=== PATIENT | male | born 1960 | race Caucasian/White ===

== ENCOUNTER 2020-09-06 07:56 | Outpatient (CLI) | payer OTHER | END 2020-09-06 07:57 | disposition home or self-care (01) | LOC: BICULT 07:56 | PROVIDERS: ATTEND Family Medicine | DX: R10.11 Right upper quadrant pain (principal); K76.0 Fatty (change of) liver, not elsewhere classified | CPT/HCPCS: 76705 ==

== ENCOUNTER 2020-09-22 14:09 | Outpatient (CLI) | payer OTHER | END 2020-09-22 14:10 | disposition home or self-care (01) | LOC: SCSMRI 14:09 | PROVIDERS: ATTEND Family Medicine | DX: M47.22 Other spondylosis with radiculopathy, cervical region (principal) | CPT/HCPCS: 72141 ==

== ENCOUNTER 2022-12-14 11:09 | Emergency (ER) | payer OTHER ==
[2022-12-14 11:38] LABS: #Basophils 0.1 thou/uL (0.0-0.2); #Eosinphils 0.1 thou/uL (0.0-0.7); #Monocytes 0.9 thou/uL (0.11-0.59); #Neutrophils 5.5 thou/uL (1.40-6.50); %Basophils 1.1 % (0.0-1.0); %Eosinophils 1.2 % (0.0-10.0); %Lymphocytes 11.8 % (21.0-51.0); %Monocytes 11.4 % (0.0-10.0); %Neutrophils 73.4 % (42.0-75.0); Hematocrit 38.9 % (42.0-52.0); Hemoglobin 13.3 g/dL (14.0-18.0); Mean Corpuscular HGB CONC 34.2 g/dL (32.0-36.0); Mean Corpuscular Hemoglobin 32.4 pg (27.0-31.0); Mean Corpuscular Volume 94.9 fl (78.0-98.0); Mean Platelet Volume 8.5 fL (7.4-10.4); Platelet Count 240 10x3/uL (130-400); RBC Distribution Width 12.8 % (11.5-14.5); White Blood Cell (WBC) Count 7.5 10x3/uL (4.8-10.8)
[2022-12-14 12:05] LABS: ALT (SGPT) 33 U/L (8-55); AST (SGOT) 32 U/L (5-34); Albumin 4.1 g/dL (3.4-4.8); Alkaline Phosphatase 65 U/L (40-110); Anion Gap 17 mmol/L (10-20); BUN (Urea Nitrogen) 27 mg/dL (8.4-25.7); Bilirubin, Total 0.6 mg/dL (0.2-1.2); Calc. Creatinine Clearance 0 mL/min (70-130); Carbon Dioxide 21 mmol/L (23-31); Chloride 106 mmol/L (98-107); Estimated GFR 37; Globulin 2.7 g/dL (2.4-3.5); Glucose 64 mg/dL (80-115); Potassium 4.5 mmol/L (3.5-5.1); Protein, Total 6.8 g/dL (5.8-8.1); Sodium 139 mmol/L (136-145)
[2022-12-14 13:51] LABS: Bacteria/HPF None Seen HPF (None Seen); Bilirubin Negative (Negative); Blood, Urine Trace (Negative); CAUTI Indications for Culture Alt mental st,lethar; Clarity Clear (Clear); Glucose, Urine (Dipstick) Normal (Negative); Ketone, Urine Trace mg/dL (Negative); Leukocyte Negative Leu/uL (Negative); Nitrite Negative (Negative); Protein, Urine (Dipstick) Negative (Neg-Trace); RBC/HPF 0-3 HPF (0-3); Specific Gravity, Urine 1.013 (1.002-1.036); Squamous Epithelial None Seen HPF (0-3); Urobilinogen Normal mg/dL (Less than 2); WBC/HPF 0-3 HPF (0-3)
[2022-12-14 14:00] LABS: Urine Culture Reflex No No
[2022-12-14 14:22] LABS: Troponin I Less than 0.010 ng/mL (< 0.028)
== END 2022-12-14 15:25 | disposition home or self-care (01) ==
LOC: ERS 11:09
DX: E86.0 Dehydration (principal); N17.9 Acute kidney failure, unspecified; I12.9 Hypertensive chronic kidney disease with stage 1 through stage 4 chronic kidney disease, or unspecified chronic kidney disease; N18.9 Chronic kidney disease, unspecified; R53.1 Weakness; I48.91 Unspecified atrial fibrillation; E78.5 Hyperlipidemia, unspecified; F17.210 Nicotine dependence, cigarettes, uncomplicated; Z79.899 Other long term (current) drug therapy
CPT/HCPCS: 36415; 70450; 80053; 81001; 84484; 85025; 93005; 96360; 96361

== ENCOUNTER 2023-09-29 11:00 | Inpatient (IN) | payer MEDICARE, OTHER ==
[2023-09-29 11:19] LABS: #Basophils 0.07 10x3/uL (0.0-0.2); %Eosinophils 0.4 % (0.0-10.0); %Lymphocytes 10.5 % (21.0-51.0); %Monocytes 10.3 % (0.0-10.0); %Neutrophils 77.1 % (42.0-75.0); Hematocrit 37.7 % (42.0-52.0); Hemoglobin 12.6 g/dL (14.0-18.0); Mean Corpuscular HGB CONC 33.4 g/dL (32.0-36.0); Mean Corpuscular Volume 95.7 fL (78.0-98.0); Mean Platelet Volume 8.8 fL (7.4-10.4); Platelet Count 242 10x3/uL (130-400); RBC Distribution Width 12.6 % (11.5-14.5); Red Blood Cell (RBC) Count 3.94 mill/uL (4.70-6.10)
[2023-09-29 11:33] LABS: ALT (SGPT) 27 U/L (8-55); AST (SGOT) 18 U/L (5-34); Albumin 3.9 g/dL (3.4-4.8); Alkaline Phosphatase 52 U/L (40-110); Anion Gap 19 mmol/L (10-20); BUN (Urea Nitrogen) 57 mg/dL (8.4-25.7); Bilirubin, Total 0.9 mg/dL (0.2-1.2); Calc. Creatinine Clearance 0 mL/min (70-130); Calcium 10.2 mg/dL (7.8-10.44); Carbon Dioxide 20 mmol/L (23-31); Chloride 103 mmol/L (98-107); Estimated GFR 11; Globulin 4.1 g/dL (2.4-3.5); Glucose 155 mg/dL (80-115); Potassium 4.3 mmol/L (3.5-5.1); Sodium 138 mmol/L (136-145)
[2023-09-29 11:54] LABS: Actual Bicarbonate (HCO3v) 21.4 mEq/L (22-28); Base Excess -4.5 mEq/L (-2.0 to +3.0); Calcium, Ionized (venous) 1.23 mmol/L (1.16-1.32); Chloride (VBG) 102 mmol/L (98-106); Hematocrit-VBG 39 % (42.0-52.0); Hemoglobin (Hb) 13.1 g/dL (12.6-17.4); Sodium 139 mmol/L (133-146); pH (venous) 7.318 (7.32-7.43)
[2023-09-29 12:28] LABS: Magnesium 2.1 mg/dL (1.6-2.6)
[2023-09-29 12:35] LABS: Troponin I Less than 0.010 ng/mL (< 0.028)
[2023-09-29 14:43] VITALS: BMI 30.5
[2023-09-29] MEDS ORDERED: Cetirizine HCl 10 MG TAB PO SCH (17:00)
[2023-09-29] MEDS: Heparin 5,000 UNITS/ML VIAL SC SCH (20:01)
[2023-09-29] MEDS: Rosuvastatin 10 MG TAB PO SCH (20:01)
[2023-09-29] MEDS: Sodium Chloride 0.9% 1,000 ML IV SCH (21:43)
[2023-09-29 22:45] LABS: Bacteria/HPF None Seen HPF (None Seen); Bilirubin Negative (Negative); Blood, Urine 1+ (Negative); Clarity Clear (Clear); Glucose, Urine (Dipstick) 100 mg/dL (Negative); Ketone, Urine Negative (Negative); Leukocyte Negative Leu/uL (Negative); Nitrite Negative (Negative); Protein, Urine (Dipstick) 30 mg/dL (Neg-Trace); RBC/HPF 0-3 HPF (0-3); Specific Gravity, Urine 1.011 (1.002-1.036); Squamous Epithelial 0-3 HPF (0-3); Urobilinogen Normal mg/dL (Less than 2); WBC/HPF 0-3 HPF (0-3)
[2023-09-30 05:16] LABS: #Basophils 0.05 10x3/uL (0.0-0.2); %Basophils 0.8 % (0.0-1.0); %Eosinophils 0.6 % (0.0-10.0); %Lymphocytes 13.2 % (21.0-51.0); %Monocytes 14.5 % (0.0-10.0); %Neutrophils 70.4 % (42.0-75.0); Hematocrit 34.5 % (42.0-52.0); Hemoglobin 11.3 g/dL (14.0-18.0); Mean Corpuscular HGB CONC 32.8 g/dL (32.0-36.0); Mean Corpuscular Hemoglobin 31.9 pg (27.0-31.0); Mean Corpuscular Volume 97.5 fL (78.0-98.0); Mean Platelet Volume 8.6 fL (7.4-10.4); Platelet Count 208 10x3/uL (130-400); RBC Distribution Width 12.6 % (11.5-14.5); Red Blood Cell (RBC) Count 3.54 mill/uL (4.70-6.10)
[2023-09-30 05:28] LABS: Phosphorus 3.9 mg/dL (2.3-4.7)
[2023-09-30 05:32] LABS: Anion Gap 15 mmol/L (10-20); BUN (Urea Nitrogen) 50 mg/dL (8.4-25.7); Calc. Creatinine Clearance 23 mL/min (70-130); Carbon Dioxide 17 mmol/L (23-31); Cardiac Risk 7.3 (Less than 4.5); Chloride 111 mmol/L (98-107); Cholesterol 176 mg/dl (< 200 Desired); Estimated GFR 14; Glucose 97 mg/dL (80-115); HDL Cholesterol 24 mg/dL (>60 Neg Risk); LDL Cholesterol, Calculated 112 mg/dL; Potassium 4.1 mmol/L (3.5-5.1); Sodium 139 mmol/L (136-145); Triglycerides 199 mg/dL (Less than 150)
[2023-09-30] MEDS: Cosyntropin 250 MCG VIAL SLOW IVP SCH (05:36)
[2023-09-30 05:55] LABS: Hemoglobin A1c 5.2 % (4.0-6.0)
[2023-09-30] MEDS: Fish Oil 1,000 MG CAP PO SCH (09:24)
[2023-09-30] MEDS: CO Q-10 CAPSULE 100 MG PO SCH (09:24)
[2023-09-30] MEDS: Loratadine 10 MG TAB PO SCH (09:24)
[2023-10-01 08:18] LABS: Anion Gap 15 mmol/L (10-20); BUN (Urea Nitrogen) 43 mg/dL (8.4-25.7); Calc. Creatinine Clearance 25 mL/min (70-130); Calcium 9.3 mg/dL (7.8-10.44); Carbon Dioxide 19 mmol/L (23-31); Chloride 113 mmol/L (98-107); Estimated GFR 14; Glucose 94 mg/dL (80-115); Potassium 4.2 mmol/L (3.5-5.1); Sodium 143 mmol/L (136-145)
[2023-10-01] MEDS: Acetaminophen 325 MG TAB PO PRN (20:39)
[2023-10-02 05:46] LABS: Anion Gap 15 mmol/L (10-20); BUN (Urea Nitrogen) 42 mg/dL (8.4-25.7); Calc. Creatinine Clearance 25 mL/min (70-130); Calcium 9.1 mg/dL (7.8-10.44); Carbon Dioxide 17 mmol/L (23-31); Chloride 114 mmol/L (98-107); Estimated GFR 15; Glucose 86 mg/dL (80-115); Potassium 4.5 mmol/L (3.5-5.1); Sodium 141 mmol/L (136-145)
[2023-10-02] MEDS: Sodium Bicarbonate Tab 325 MG TAB PO SCH (08:33)
[2023-10-03 06:06] LABS: Anion Gap 13 mmol/L (10-20); BUN (Urea Nitrogen) 38 mg/dL (8.4-25.7); Calc. Creatinine Clearance 28 mL/min (70-130); Calcium 9.2 mg/dL (7.8-10.44); Carbon Dioxide 18 mmol/L (23-31); Chloride 114 mmol/L (98-107); Estimated GFR 17; Glucose 89 mg/dL (80-115); Potassium 4.3 mmol/L (3.5-5.1); Sodium 141 mmol/L (136-145)
[2023-10-03 08:32] VITALS: TEMP 97.6
[2023-10-03 11:46] VITALS: BP 152/87
== END 2023-10-03 11:52 | disposition home or self-care (01) | DRG 683 ==
LOC: ERS 11:00 → 2NO 13:10 → ERS 14:11 → T4-A 09-30 16:43
PROVIDERS: ADMIT Hospitalist; ATTEND Internal Medicine
DX: N17.0 Acute kidney failure with tubular necrosis (principal); E87.20 Acidosis, unspecified; I95.1 Orthostatic hypotension; I48.91 Unspecified atrial fibrillation; I12.9 Hypertensive chronic kidney disease with stage 1 through stage 4 chronic kidney disease, or unspecified chronic kidney disease; Z79.899 Other long term (current) drug therapy; E78.5 Hyperlipidemia, unspecified; N18.5 Chronic kidney disease, stage 5; Z98.890 Other specified postprocedural states; F17.210 Nicotine dependence, cigarettes, uncomplicated; F41.9 Anxiety disorder, unspecified
CPT/HCPCS: 36415; 76770; 80048; 80053; 80061; 80400; 81001; 82805; 83036; 83735; 83970; 84100; 84443; 84484; 85025; 93005; 93306; J0834; J1644; J7050

== ENCOUNTER 2023-10-12 04:53 | Inpatient (IN) | payer MEDICARE ==
[2023-10-12 05:54] LABS: #Basophils 0.05 10x3/uL (0.0-0.2); %Basophils 0.5 % (0.0-1.0); %Eosinophils 0.3 % (0.0-10.0); %Lymphocytes 4.6 % (21.0-51.0); %Monocytes 8.5 % (0.0-10.0); %Neutrophils 85.6 % (42.0-75.0); Hematocrit 35.7 % (42.0-52.0); Hemoglobin 12.2 g/dL (14.0-18.0); Mean Corpuscular HGB CONC 34.2 g/dL (32.0-36.0); Mean Corpuscular Volume 93.7 fL (78.0-98.0); Mean Platelet Volume 8.9 fL (7.4-10.4); Platelet Count 238 10x3/uL (130-400); RBC Distribution Width 12.3 % (11.5-14.5); Red Blood Cell (RBC) Count 3.81 mill/uL (4.70-6.10)
[2023-10-12 06:08] LABS: Prothrombin Time 13.4 sec (12.0-14.7)
[2023-10-12 06:09] LABS: PTT 32.4 sec (22.9-36.1)
[2023-10-12 06:12] LABS: Influenza A by NAA Not Detected (NotDetected); Influenza B by NAA Not Detected (NotDetected); SARS-CoV-2 NAA Rapid Test Not Detected (NotDetected)
[2023-10-12 06:24] LABS: ALT (SGPT) 16 U/L (8-55); AST (SGOT) 14 U/L (5-34); Albumin 3.7 g/dL (3.4-4.8); Alkaline Phosphatase 47 U/L (40-110); Anion Gap 20 mmol/L (10-20); BUN (Urea Nitrogen) 57 mg/dL (8.4-25.7); Bilirubin, Total 0.5 mg/dL (0.2-1.2); Calc. Creatinine Clearance 0 mL/min (70-130); Calcium 9.9 mg/dL (7.8-10.44); Carbon Dioxide 18 mmol/L (23-31); Estimated GFR 10; Globulin 3.7 g/dL (2.4-3.5); Glucose 95 mg/dL (80-115); Lipase 114 U/L (8-78); Magnesium 2.1 mg/dL (1.6-2.6); Protein, Total 7.4 g/dL (5.8-8.1)
[2023-10-12 06:25] LABS: Troponin I Less than 0.010 ng/mL (< 0.028)
[2023-10-12 06:40] LABS: Chloride 105 mmol/L (98-107); Potassium 3.8 mmol/L (3.5-5.1); Sodium 139 mmol/L (136-145)
[2023-10-12] MEDS ORDERED: Ondansetron PF 4 MG/2 ML Vial IVP PRN (08:50)
[2023-10-12] MEDS ORDERED: Acetaminophen 325 MG TAB PO PRN (08:50)
[2023-10-12] MEDS ORDERED: Sodium Bicarbonate Tab 325 MG TAB PO SCH (09:00)
[2023-10-12 09:46] LABS: Phosphorus 4.4 mg/dL (2.3-4.7)
[2023-10-12] MEDS: Lactated Ringer's 1,000 ML IV SCH (09:47)
[2023-10-12] MEDS: Albumin 25% 25 GM (100 mL) BOT IVPB SCH (09:47)
[2023-10-12] MEDS: Sodium Bicarbonate Tab 325 MG TAB PO SCH (09:49)
[2023-10-12 10:37] VITALS: BMI 30.5
[2023-10-12] MEDS: Cefepime 1 GM in Sodium Chloride 0.9% 100 ML IVPB SCH (11:53)
[2023-10-12] MEDS: HYDROcodone/Acetaminophen 5/325 mg Tablet PO PRN (16:56)
[2023-10-12] MEDS: Rosuvastatin 10 MG TAB PO SCH (20:39)
[2023-10-12] MEDS ORDERED: Cefepime 1 GM in Sodium Chloride 0.9% 100 ML IVPB SCH (21:00)
[2023-10-13 05:02] LABS: #Basophils 0.03 10x3/uL (0.0-0.2); %Basophils 0.5 % (0.0-1.0); %Lymphocytes 10.3 % (21.0-51.0); %Monocytes 12.7 % (0.0-10.0); %Neutrophils 75.2 % (42.0-75.0); Hematocrit 29.2 % (42.0-52.0); Hemoglobin 9.5 g/dL (14.0-18.0); Mean Corpuscular HGB CONC 32.5 g/dL (32.0-36.0); Mean Corpuscular Hemoglobin 31.7 pg (27.0-31.0); Mean Corpuscular Volume 97.3 fL (78.0-98.0); Mean Platelet Volume 8.8 fL (7.4-10.4); Platelet Count 184 10x3/uL (130-400); RBC Distribution Width 12.3 % (11.5-14.5)
[2023-10-13 05:25] LABS: Anion Gap 14 mmol/L (10-20); BUN (Urea Nitrogen) 59 mg/dL (8.4-25.7); BUN/Creatinine Ratio 9.92; Calc. Creatinine Clearance 18 mL/min (70-130); Calcium 9.4 mg/dL (7.8-10.44); Carbon Dioxide 20 mmol/L (23-31); Chloride 108 mmol/L (98-107); Estimated GFR 10; Glucose 93 mg/dL (80-115); Phosphorus 4.5 mg/dL (2.3-4.7); Potassium 3.7 mmol/L (3.5-5.1); Sodium 138 mmol/L (136-145)
[2023-10-13 07:41] LABS: Iron 44 ug/dL (65-175); Iron Binding Capacity, Total 170 mcg/dL (261-462)
[2023-10-13] MEDS: EPOETIN ALFA-EPBX (ESRD) 10,000 UNITS/ML VIAL SC SCH (08:22)
[2023-10-13 15:18] LABS: Hep C Index 0.07 S/CO (0-0.79)
[2023-10-13 15:48] LABS: Hep B Core Total Ab NONREACTIVE (NonReactive); Hep B Core Total Index 0.11 S/CO (0-0.79)
[2023-10-13 15:51] LABS: HBSAB Concentration Less than 8.00 mIU/mL; HBsAg Index 0.42 S/CO (0-0.99); Hep B Surf AB NONREACTIVE (NonReactive); Hep B Surf Ag NONREACTIVE S/CO (NonReactive); Hep C IgG Ab NONREACTIVE S/CO (NonReactive)
[2023-10-14 06:42] LABS: #Basophils 0.04 10x3/uL (0.0-0.2); %Basophils 0.6 % (0.0-1.0); %Eosinophils 0.9 % (0.0-10.0); %Lymphocytes 10.5 % (21.0-51.0); %Monocytes 15.1 % (0.0-10.0); %Neutrophils 72.4 % (42.0-75.0); Hematocrit 33.1 % (42.0-52.0); Hemoglobin 10.9 g/dL (14.0-18.0); Mean Corpuscular HGB CONC 32.9 g/dL (32.0-36.0); Mean Corpuscular Hemoglobin 31.1 pg (27.0-31.0); Mean Corpuscular Volume 94.3 fL (78.0-98.0); Mean Platelet Volume 9.1 fL (7.4-10.4); Platelet Count 217 10x3/uL (130-400); RBC Distribution Width 12.1 % (11.5-14.5); Red Blood Cell (RBC) Count 3.51 mill/uL (4.70-6.10)
[2023-10-14 06:53] LABS: ALT (SGPT) 8 U/L (8-55); AST (SGOT) 10 U/L (5-34); Albumin 3.9 g/dL (3.4-4.8); Alkaline Phosphatase 34 U/L (40-110); Anion Gap 16 mmol/L (10-20); BUN (Urea Nitrogen) 51 mg/dL (8.4-25.7); Bilirubin, Total 0.6 mg/dL (0.2-1.2); Calc. Creatinine Clearance 20 mL/min (70-130); Calcium 9.9 mg/dL (7.8-10.44); Carbon Dioxide 19 mmol/L (23-31); Chloride 108 mmol/L (98-107); Estimated GFR 11; Globulin 3.1 g/dL (2.4-3.5); Glucose 89 mg/dL (80-115); Lipase 88 U/L (8-78); Sodium 139 mmol/L (136-145)
[2023-10-14 11:32] VITALS: BP 120/73; TEMP 97.9
[2023-10-17 13:17] LABS: QuantiFERON-TB Gold Plus Negative (Negative)
== END 2023-10-14 14:57 | disposition home or self-care (01) | DRG 683 ==
LOC: ERS 04:53 → ERHOLD 08:21 → T4-B 09:32
PROVIDERS: ADMIT Internal Medicine; ATTEND Internal Medicine
DX: N17.9 Acute kidney failure, unspecified (principal); E87.20 Acidosis, unspecified; I12.0 Hypertensive chronic kidney disease with stage 5 chronic kidney disease or end stage renal disease; I95.9 Hypotension, unspecified; N18.5 Chronic kidney disease, stage 5; E66.9 Obesity, unspecified; R50.9 Fever, unspecified; E78.5 Hyperlipidemia, unspecified; Z79.899 Other long term (current) drug therapy; Z68.30 Body mass index [BMI] 30.0-30.9, adult
CPT/HCPCS: 36415; 36416; 71045; 76770; 80048; 80053; 80069; 82728; 83540; 83550; 83690; 83735; 83880; 84100; 84484; 85025; 85610; 85730; 86480; 86704; 86706; 86803; 87040; 87086; 87340; 93005; J0692; J3490; J7120; P9047; Q5105

== ENCOUNTER 2023-10-24 06:15 | Inpatient (IN) | payer MEDICARE ==
[2023-10-24] MEDS ORDERED: fentaNYL 50 mcg/mL 1 mL Vial ONE (06:33)
[2023-10-24] MEDS ORDERED: Ondansetron PF 4 MG/2 ML Vial ONE (06:41)
[2023-10-24 06:48] LABS: #Basophils 0.04 10x3/uL (0.0-0.2); #Eosinphils Less than 0.03 10x3/uL (0.0-0.7); %Basophils 0.4 % (0.0-1.0); %Eosinophils 0.2 % (0.0-10.0); %Lymphocytes 11.4 % (21.0-51.0); %Monocytes 13.4 % (0.0-10.0); %Neutrophils 74.1 % (42.0-75.0); Hematocrit 35.8 % (42.0-52.0); Hemoglobin 11.5 g/dL (14.0-18.0); Mean Corpuscular HGB CONC 32.1 g/dL (32.0-36.0); Mean Corpuscular Hemoglobin 31.2 pg (27.0-31.0); Mean Platelet Volume 8.8 fL (7.4-10.4); Platelet Count 236 10x3/uL (130-400); RBC Distribution Width 12.2 % (11.5-14.5); Red Blood Cell (RBC) Count 3.69 mill/uL (4.70-6.10)
[2023-10-24 07:05] LABS: ALT (SGPT) 8 U/L (8-55); AST (SGOT) 15 U/L (5-34); Albumin 4.3 g/dL (3.4-4.8); Alkaline Phosphatase 48 U/L (40-110); Anion Gap 21 mmol/L (10-20); BUN (Urea Nitrogen) 54 mg/dL (8.4-25.7); Bilirubin, Total 0.8 mg/dL (0.2-1.2); CK (CPK) 33 U/L (30-200); Calc. Creatinine Clearance 0 mL/min (70-130); Calcium 10.3 mg/dL (7.8-10.44); Carbon Dioxide 21 mmol/L (23-31); Chloride 101 mmol/L (98-107); Estimated GFR 9; Globulin 3.4 g/dL (2.4-3.5); Glucose 104 mg/dL (80-115); Lipase 145 U/L (8-78); Potassium 4.8 mmol/L (3.5-5.1); Protein, Total 7.7 g/dL (5.8-8.1); Sodium 138 mmol/L (136-145)
[2023-10-24 07:07] LABS: Troponin I Less than 0.010 ng/mL (< 0.028)
[2023-10-24] MEDS ORDERED: Morphine 4 MG/ML VIAL ONE (07:57)
[2023-10-24] MEDS ORDERED: Ondansetron PF 4 MG/2 ML Vial IVP PRN (08:32)
[2023-10-24] MEDS ORDERED: Senokot S 8.6-50 MG TAB PO PRN (08:32)
[2023-10-24] MEDS ORDERED: Lidocaine 4% Patch TD SCH (09:00)
[2023-10-24] MEDS ORDERED: Benzonatate 100 MG CAP PO PRN (09:02)
[2023-10-24 09:16] VITALS: BMI 30.4
[2023-10-24 09:51] LABS: Troponin I Less than 0.010 ng/mL (< 0.028)
[2023-10-24] MEDS ORDERED: Iopamidol-370 76% 500 ML MDV (1 ML CHARGE) ONE (10:01)
[2023-10-24] MEDS ORDERED: tiZANidine HCl 4 MG TAB ONE (10:15)
[2023-10-24] MEDS ORDERED: Loratadine 10 MG TAB ONE (10:15)
[2023-10-24] MEDS: Fluticasone Propionate Nasal Spray 16 gm Bottle NASAL SCH (10:20)
[2023-10-24] MEDS: Loratadine 10 MG TAB PO SCH (10:24)
[2023-10-24] MEDS: tiZANidine HCl 4 MG TAB PO SCH (10:25)
[2023-10-24] MEDS: Rosuvastatin 10 MG TAB PO SCH (10:25)
[2023-10-24] MEDS: Lidocaine 4% Patch TD SCH ×2 (10:25→10:26)
[2023-10-24] MEDS ORDERED: Morphine 2 MG/ML VIAL ONE (10:58)
[2023-10-24 11:00] LABS: Bacteria/HPF None Seen HPF (None Seen); Bilirubin Negative (Negative); Blood, Urine 1+ (Negative); CAUTI Indications for Culture Pelvic or flank pain; Clarity Clear (Clear); Glucose, Urine (Dipstick) 70 mg/dL (Negative); Ketone, Urine Negative (Negative); Leukocyte Negative Leu/uL (Negative); Nitrite Negative (Negative); Protein, Urine (Dipstick) 70 mg/dL (Neg-Trace); RBC/HPF 0-3 HPF (0-3); Specific Gravity, Urine 1.018 (1.002-1.036); Squamous Epithelial None Seen HPF (0-3); Urobilinogen Normal mg/dL (Less than 2); WBC/HPF 0-3 HPF (0-3); pH, Urine 7.5 (5.0-9.0)
[2023-10-24 11:03] LABS: Urine Culture Reflex No No
[2023-10-24] MEDS: Morphine 2 MG/ML VIAL SLOW IVP PRN (11:07)
[2023-10-24 13:09] LABS: Troponin I 0.015 ng/mL (< 0.028)
[2023-10-24] MEDS: HYDROcodone/Acetaminophen 5/325 mg Tablet PO PRN (15:21)
[2023-10-24] MEDS: Ipratropium/Albuterol 3 ML NEB NEB SCH (16:03)
[2023-10-24] MEDS: Ketorolac Tromethamine 30 MG (1 mL) VIAL IVP PRN (16:03)
[2023-10-24] MEDS: Morphine 4 MG/ML VIAL SLOW IVP PRN (20:27)
[2023-10-24] MEDS: Transdermal Patch Removal TOP SCH (22:06)
[2023-10-25 04:50] LABS: #Basophils 0.03 10x3/uL (0.0-0.2); %Basophils 0.4 % (0.0-1.0); %Eosinophils 1.6 % (0.0-10.0); %Lymphocytes 7.3 % (21.0-51.0); %Monocytes 15.3 % (0.0-10.0); %Neutrophils 75.1 % (42.0-75.0); Hematocrit 30.3 % (42.0-52.0); Mean Corpuscular Hemoglobin 32.3 pg (27.0-31.0); Mean Corpuscular Volume 97.7 fL (78.0-98.0); Mean Platelet Volume 8.9 fL (7.4-10.4); Platelet Count 186 10x3/uL (130-400); RBC Distribution Width 12.1 % (11.5-14.5)
[2023-10-25 05:31] LABS: Anion Gap 16 mmol/L (10-20); BUN (Urea Nitrogen) 61 mg/dL (8.4-25.7); Calc. Creatinine Clearance 15 mL/min (70-130); Calcium 9.4 mg/dL (7.8-10.44); Carbon Dioxide 22 mmol/L (23-31); Chloride 101 mmol/L (98-107); Estimated GFR 8; Glucose 100 mg/dL (80-115); Potassium 4.8 mmol/L (3.5-5.1); Sodium 134 mmol/L (136-145)
[2023-10-25] MEDS: Ipratropium/Albuterol 3 ML NEB NEB PRN (10:26)
[2023-10-25] MEDS: EPOETIN ALFA-EPBX (ESRD) 10,000 UNITS/ML VIAL SC SCH (10:27)
[2023-10-25] MEDS ORDERED: HYDROcodone/Acetaminophen 7.5/325 mg Tablet PO PRN (14:20)
[2023-10-25] MEDS: HYDROcodone/Acetaminophen 7.5/325 mg Tablet PO PRN (17:48)
[2023-10-26] MEDS: Ketorolac Tromethamine 30 MG (1 mL) VIAL IVP SCH (03:32)
[2023-10-26 16:21] VITALS: BP 132/79; TEMP 98.4
== END 2023-10-26 17:10 | disposition home or self-care (01) | DRG 562 ==
LOC: ERS 06:15 → ERHOLD 08:22 → 2NO 12:03 → OBSVTOIN 10-26 13:58
PROVIDERS: ADMIT Family Medicine; ATTEND Internal Medicine
DX: S39.011A Strain of muscle, fascia and tendon of abdomen, initial encounter (principal); N18.6 End stage renal disease; I12.0 Hypertensive chronic kidney disease with stage 5 chronic kidney disease or end stage renal disease; E78.5 Hyperlipidemia, unspecified; J30.2 Other seasonal allergic rhinitis; Z99.2 Dependence on renal dialysis; Z79.899 Other long term (current) drug therapy; X58.XXXA Exposure to other specified factors, initial encounter; Y93.89 Activity, other specified; Y92.89 Other specified places as the place of occurrence of the external cause; D63.1 Anemia in chronic kidney disease
CPT/HCPCS: 36415; 71045; 71260; 71275; 74177; 80048; 80053; 81001; 82550; 83605; 83690; 84484; 85025; 85379; 93005; 94640; 96374; 96375; J1885; J2270; J2272; J2405; J3010; J7620; Q5105

== ENCOUNTER 2024-03-13 10:07 | Emergency (ER) | payer MEDICARE ==
[2024-03-13 10:42] LABS: #Basophils 0.09 10x3/uL (0.0-0.2); %Basophils 1.1 % (0.0-1.0); %Lymphocytes 13.2 % (21.0-51.0); %Monocytes 10.7 % (0.0-10.0); %Neutrophils 71.6 % (42.0-75.0); Hematocrit 39.1 % (42.0-52.0); Hemoglobin 12.9 g/dL (14.0-18.0); Mean Corpuscular Hemoglobin 31.5 pg (27.0-31.0); Mean Corpuscular Volume 95.6 fL (78.0-98.0); Mean Platelet Volume 8.9 fL (7.4-10.4); Platelet Count 163 10x3/uL (130-400); RBC Distribution Width 13.9 % (11.5-14.5); Red Blood Cell (RBC) Count 4.09 mill/uL (4.70-6.10)
[2024-03-13 10:55] LABS: ALT (SGPT) 9 U/L (8-55); AST (SGOT) 6 U/L (5-34); Albumin 3.8 g/dL (3.4-4.8); Alkaline Phosphatase 63 U/L (40-110); Anion Gap 20 mmol/L (10-20); BUN (Urea Nitrogen) 81 mg/dL (8.4-25.7); Bilirubin, Total 0.7 mg/dL (0.2-1.2); Calc. Creatinine Clearance 0 mL/min (70-130); Calcium 11.3 mg/dL (7.8-10.44); Carbon Dioxide 18 mmol/L (23-31); Chloride 103 mmol/L (98-107); Estimated GFR 3; Globulin 3.2 g/dL (2.4-3.5); Glucose 88 mg/dL (80-115); Magnesium 2.5 mg/dL (1.6-2.6); Potassium 4.6 mmol/L (3.5-5.1); Sodium 136 mmol/L (136-145)
[2024-03-13 11:26] LABS: Troponin I Less than 0.010 ng/mL (< 0.028)
[2024-03-13 11:28] LABS: Phosphorus 7.8 mg/dL (2.3-4.7)
[2024-03-13] MEDS ORDERED: Dexamethasone 10 MG/ML VIAL ONE (12:30)
[2024-03-13 12:35] LABS: Bacteria/HPF None Seen HPF (None Seen); Bilirubin Negative (Negative); Blood, Urine 1+ (Negative); CAUTI Indications for Culture Pelvic or flank pain; Clarity Clear (Clear); Glucose, Urine (Dipstick) 70 mg/dL (Negative); Ketone, Urine Negative (Negative); Leukocyte Negative Leu/uL (Negative); Nitrite Negative (Negative); Protein, Urine (Dipstick) 50 mg/dL (Neg-Trace); RBC/HPF 0-3 HPF (0-3); Specific Gravity, Urine 1.003 (1.002-1.036); Squamous Epithelial None Seen HPF (0-3); Urobilinogen Normal mg/dL (Less than 2); WBC/HPF 0-3 HPF (0-3)
[2024-03-13 12:45] LABS: Urine Culture Reflex No No
== END 2024-03-13 12:15 | disposition home or self-care (01) ==
LOC: ERS 10:07
DX: L29.9 Pruritus, unspecified (principal); I12.0 Hypertensive chronic kidney disease with stage 5 chronic kidney disease or end stage renal disease; N18.6 End stage renal disease; I48.91 Unspecified atrial fibrillation; Z99.2 Dependence on renal dialysis
CPT/HCPCS: 71045; 80053; 81001; 83735; 83880; 84100; 84484; 85025; 93005; J1100; 36415

== ENCOUNTER 2024-03-21 17:36 | Observation (INO) | payer MEDICARE ==
[2024-03-21 18:25] LABS: #Basophils 0.07 10x3/uL (0.0-0.2); %Basophils 0.9 % (0.0-1.0); %Eosinophils 2.5 % (0.0-10.0); %Lymphocytes 13.1 % (21.0-51.0); %Monocytes 10.4 % (0.0-10.0); %Neutrophils 72.9 % (42.0-75.0); Hematocrit 40.8 % (42.0-52.0); Hemoglobin 14.4 g/dL (14.0-18.0); Mean Corpuscular HGB CONC 35.3 g/dL (32.0-36.0); Mean Corpuscular Hemoglobin 31.7 pg (27.0-31.0); Mean Corpuscular Volume 89.9 fL (78.0-98.0); Mean Platelet Volume 9.5 fL (7.4-10.4); Platelet Count 150 10x3/uL (130-400); RBC Distribution Width 13.7 % (11.5-14.5); Red Blood Cell (RBC) Count 4.54 mill/uL (4.70-6.10)
[2024-03-21 18:40] LABS: Phosphorus 8.1 mg/dL (2.3-4.7)
[2024-03-21 18:42] LABS: ALT (SGPT) 10 U/L (8-55); AST (SGOT) 8 U/L (5-34); Albumin 3.9 g/dL (3.4-4.8); Alkaline Phosphatase 73 U/L (40-110); Anion Gap 20 mmol/L (10-20); BUN (Urea Nitrogen) 108 mg/dL (8.4-25.7); Bilirubin, Total 0.6 mg/dL (0.2-1.2); Calc. Creatinine Clearance 0 mL/min (70-130); Calcium 10.8 mg/dL (7.8-10.44); Carbon Dioxide 17 mmol/L (23-31); Chloride 103 mmol/L (98-107); Estimated GFR 4; Globulin 3.5 g/dL (2.4-3.5); Glucose 90 mg/dL (80-115); Magnesium 2.3 mg/dL (1.6-2.6); Potassium 4.3 mmol/L (3.5-5.1); Protein, Total 7.4 g/dL (5.8-8.1); Sodium 136 mmol/L (136-145)
[2024-03-21] MEDS ORDERED: Lorazepam 1 MG TAB ONE (21:37)
[2024-03-22] MEDS ORDERED: HYDROcodone/Acetaminophen 7.5/325 mg Tablet PO PRN (00:31)
[2024-03-22] MEDS ORDERED: Acetaminophen 325 MG TAB PO PRN (00:33)
[2024-03-22 01:33] VITALS: BMI 25.6
[2024-03-22] MEDS: Sterile Water 10 ML VIAL FS SCH (01:33)
[2024-03-22] MEDS: Lorazepam 0.5 MG TAB PO SCH ×2 (01:33→10:37)
[2024-03-22] MEDS: Activase 2 MG VIAL CATH SCH (01:33)
[2024-03-22 04:27] LABS: #Basophils 0.05 10x3/uL (0.0-0.2); %Basophils 0.6 % (0.0-1.0); %Eosinophils 1.6 % (0.0-10.0); %Lymphocytes 9.8 % (21.0-51.0); %Monocytes 9.9 % (0.0-10.0); %Neutrophils 77.7 % (42.0-75.0); Hematocrit 38.6 % (42.0-52.0); Hemoglobin 13.2 g/dL (14.0-18.0); Mean Corpuscular HGB CONC 34.2 g/dL (32.0-36.0); Mean Corpuscular Hemoglobin 31.1 pg (27.0-31.0); Mean Platelet Volume 9.1 fL (7.4-10.4); Platelet Count 142 10x3/uL (130-400); RBC Distribution Width 13.8 % (11.5-14.5); Red Blood Cell (RBC) Count 4.24 mill/uL (4.70-6.10)
[2024-03-22 06:54] LABS: Chloride 110 mmol/L (98-107); Potassium 4.3 mmol/L (3.5-5.1); Sodium 139 mmol/L (136-145)
[2024-03-22 06:55] LABS: Calcium 10.1 mg/dL (7.8-10.44)
[2024-03-22 06:56] LABS: Glucose 85 mg/dL (80-115)
[2024-03-22 06:57] LABS: Anion Gap 19 mmol/L (10-20); Carbon Dioxide 14 mmol/L (23-31)
[2024-03-22 07:00] LABS: BUN (Urea Nitrogen) 106 mg/dL (8.4-25.7); Calc. Creatinine Clearance 7 mL/min (70-130); Estimated GFR 4
[2024-03-22 08:03] VITALS: TEMP 97.5
[2024-03-22] MEDS: Rosuvastatin 10 MG TAB PO SCH (08:11)
[2024-03-22] MEDS: Loratadine 10 MG TAB PO SCH (08:11)
[2024-03-22] MEDS: FLU (Fluad Triv) TS24-25 (65UP)/MF59C/PF 45 MCG/0.5 ML Syringe IM ONE (08:12)
[2024-03-22] MEDS ORDERED: Heparin 10,000 UNITS/ 10 ML VIAL ONE (08:53)
[2024-03-22] MEDS: Ondansetron PF 4 MG/2 ML Vial IVP PRN (11:46)
[2024-03-22] MEDS: Lanthanum Carbonate 500 mg Chewable Tablet PO SCH (13:35)
[2024-03-22 15:15] VITALS: BP 104/70
[2024-03-22 17:08] VITALS: BMI 25.6
== END 2024-03-22 17:28 ==
LOC: ERS 17:36 → T4-A 23:50
PROVIDERS: ADMIT Internal Medicine; ATTEND Internal Medicine
DX: T82.49XA Other complication of vascular dialysis catheter, initial encounter (principal); I12.0 Hypertensive chronic kidney disease with stage 5 chronic kidney disease or end stage renal disease; N18.6 End stage renal disease; E78.5 Hyperlipidemia, unspecified; E83.39 Other disorders of phosphorus metabolism; J30.9 Allergic rhinitis, unspecified; Z79.899 Other long term (current) drug therapy; Y83.1 Surgical operation with implant of artificial internal device as the cause of abnormal reaction of the patient, or of later complication, without mention of misadventure at the time of the procedure
CPT/HCPCS: 71045; 80048; 80053; 83735; 84100; 85025 ×2; 93005; 99285; J2405; J2997; 36415; 90935; G0257; G0378; J1644